=== PATIENT | male | born 1960 | race Caucasian/White ===

== ENCOUNTER 2017-10-12 08:10 | Day surgery (SDC) | payer OTHER ==
[2017-10-12] MEDS ORDERED: LIDOCAINE 100 MG SYRINGE (09:27)
[2017-10-12] MEDS ORDERED: FENTAnyl 50 MCG/ML VIAL (09:27)
[2017-10-12] MEDS ORDERED: PROPOFOL 40 ML (09:27)
== END 2017-10-12 13:22 | disposition home or self-care (01) ==
LOC: GIL 08:10
DX: K92.1 Melena (principal); I85.00 Esophageal varices without bleeding; K29.60 Other gastritis without bleeding; K64.8 Other hemorrhoids; I10 Essential (primary) hypertension
CPT/HCPCS: 43239